=== PATIENT | female | born 1965 | race Caucasian/White ===

== ENCOUNTER → 2017-03-22 | Outpatient (CLI) | payer MEDICARE | LOC: KOH-I 08:00 | DX: M54.5 Low back pain (principal); M79.2 Neuralgia and neuritis, unspecified; M25.552 Pain in left hip; M54.32 Sciatica, left side; N80.0 Endometriosis of uterus; N83.201 Unspecified ovarian cyst, right side; R93.7 Abnormal findings on diagnostic imaging of other parts of musculoskeletal system | CPT/HCPCS: 73721 ==

== ENCOUNTER → 2021-03-25 | Outpatient (CLI) | payer OTHER ==
[2021-03-25 11:38] LABS: HEMOGLOBIN 12.5 gm/dl (12.3-15.3); RED BLOOD COUNT 4.01 M/UL (4.00-5.10); WHITE BLOOD COUNT 8.4 K/UL (4.5-11.0)
[2021-03-25 12:04] LABS: BUN/CREATININE RATIO 35 (0-10)
== END ==
LOC: EDSTATUS 10:00 → OPSV2 10:00
PROVIDERS: Orthopaedic Surgery
DX: Z01.818 Encounter for other preprocedural examination (principal); M17.11 Unilateral primary osteoarthritis, right knee
CPT/HCPCS: 71046; 80048; 81001; 85025; 87081; 93005

== ENCOUNTER → 2022-01-28 | Outpatient (CLI) | payer OTHER | LOC: HEART 5 13:30 | DX: I87.2 Venous insufficiency (chronic) (peripheral) (principal); R60.0 Localized edema | CPT/HCPCS: 93970 ==

== ENCOUNTER → 2022-04-15 | Outpatient (CLI) | payer OTHER ==
[~2022-04-15] MED LIST: IBU800 MG PO; LISINOPRIL-HCT1 EACH PO; LOW DOSE ASPIRI81 MG PO; METOPROLOL TART25 MG PO; SUBOXONE 8 MG-1 EACH SL
[2022-04-15 11:09] LABS: HEMOGLOBIN 12.1 gm/dl (12.3-15.3); RED BLOOD COUNT 3.84 M/UL (4.00-5.10)
[2022-04-15 11:35] LABS: BUN/CREATININE RATIO 36 (0-10)
== END ==
LOC: OPSV2 10:00 → EDSTATUS 10:00 → OPSV2 10:32
PROVIDERS: Orthopaedic Surgery
DX: Z01.818 Encounter for other preprocedural examination (principal); M17.11 Unilateral primary osteoarthritis, right knee
CPT/HCPCS: 71046; 80048; 85025; 93005

== ENCOUNTER → 2022-04-27 | Outpatient (CLI) | payer OTHER ==
[~2022-04-27] MED LIST changes: +ELIQUIS2.5 MG PO
[2022-04-27 10:41] LABS: BUN/CREATININE RATIO 37 (0-10)
== END ==
LOC: LAB 09:56
PROVIDERS: Orthopaedic Surgery
DX: Z01.812 Encounter for preprocedural laboratory examination (principal)
CPT/HCPCS: 36415; 80048; 86850; 86900; 86901

== ENCOUNTER → 2022-06-03 | Outpatient (CLI) | payer OTHER ==
[~2022-06-03] MED LIST changes: +ENDOCET 7.5-321 EACH PO; +IBUPROFEN800 MG PO; +OMEPRAZOLE20 M1 PO
[2022-06-03 10:42] LABS: RED BLOOD COUNT 4.04 M/UL (4.00-5.10); WHITE BLOOD COUNT 5.6 K/UL (4.5-11.0)
[2022-06-03 11:05] LABS: BUN/CREATININE RATIO 27 (0-10)
== END ==
LOC: OPSV2 09:00
PROVIDERS: Orthopaedic Surgery
DX: Z01.818 Encounter for other preprocedural examination (principal)
CPT/HCPCS: 80048; 85027; 93005

== ENCOUNTER → 2022-06-04 | Day surgery (SDC) | payer OTHER | END | disposition home or self-care (01) | LOC: OR 06:20 | DX: M76.9 Unspecified enthesopathy, lower limb, excluding foot (principal); I10 Essential (primary) hypertension; G89.29 Other chronic pain; Z79.82 Long term (current) use of aspirin; Z79.899 Other long term (current) drug therapy | CPT/HCPCS: 97116; 97161; J1885; J2250; J2704; J3010 ==